=== PATIENT | male | born 1965 | race Caucasian/White ===

== ENCOUNTER 2018-10-17 06:00 | Day surgery (SDC) | payer BC ==
[~2018-10-17 06:00] MED LIST: Lactated Ringers 1,000 ML IV SCH
[2018-10-17] MEDS ORDERED: DIPRIVAN 200 MG/20 ML IV ONE (06:01)
[2018-10-17] MEDS ORDERED: Ketamine HCl 50 MG/ML IV ONE (06:01)
[2018-10-17 06:27] VITALS: O2SAT 97
[2018-10-17] MEDS ORDERED: Lactated Ringers 1,000 ML IV ONE (07:10)
[2018-10-17 08:58] VITALS: BP 115/70; PULSE 67
--- NOTE | 2018-10-17 14:16 | OP ---
SURGERY DATE/TIME: 10/17/2018 0705 PREOPERATIVE DIAGNOSIS: Screening colonoscopy. POSTOPERATIVE DIAGNOSIS: Descending colon polyp. PROCEDURE: Colonoscopy. SURGEON: Vazquez Anne M.D. ANESTHESIA: MAC by Walter Motley CRNA. ESTIMATED BLOOD LOSS: Minimal. SPECIMENS: Hot snare polypectomy from descending colon. DESCRIPTION OF PROCEDURE: After informed written consent was obtained, the patient was taken to the endoscopy suite. He underwent monitored anesthesia and digital rectal exam showed normal sphincter tone and no internal lesions. The scope was inserted into the rectum and sequentially the entire colonic mucosa was traversed. The level of cecum was reached and verified with direct visualization of ileocecal valve. Upon withdrawal a sessile polyp in the descending colon was felt to be too large to be grasped with forceps therefore it was encircled with a snare and cauterized at the base. The entire lesion was removed. It was retrieved and sent for pathology. The remainder of the exam was unremarkable. Retroflexion was performed prior to withdrawal showed no internal lesions. The scope was removed and the patient was transferred to the recovery room in good condition. He is advised to follow up in one week for pathology results.
== END 2018-10-17 09:00 | disposition home or self-care (01) ==
LOC: SDC 06:00
PROVIDERS: ATTEND Family Medicine
DX: Z12.11 Encounter for screening for malignant neoplasm of colon (principal); K63.5 Polyp of colon
CPT/HCPCS: 88305; J2704

== ENCOUNTER 2022-08-31 06:04 | Day surgery (SDC) | payer BC ==
[2022-08-31] MEDS ORDERED: Lactated Ringers 1,000 ML IV SCH (07:00)
[2022-08-31] MEDS ORDERED: Versed 2 MG/2 ML Injection ONE (07:45)
[2022-08-31] MEDS ORDERED: DIPRIVAN 200 MG/20 ML IV ONE ×2 (07:45→08:22)
--- NOTE | 2022-08-31 08:47 | OP ---
SURGERY DATE/TIME: 08/31/2022 0756 PREOPERATIVE DIAGNOSES: 1) Screening colonoscopy. 2) History of colon polyps. POSTOPERATIVE DIAGNOSIS: Colon polyps x3. PROCEDURE: Colonoscopy. SURGEON: Vazquez Anne M.D. ANESTHESIA: MAC by Tres Farmer CRNA. ESTIMATED BLOOD LOSS: Minimal. SPECIMENS: Three hot forceps polypectomies. DESCRIPTION OF PROCEDURE: After informed written consent was obtained, the patient was taken to the endoscopy suite. He was placed in the left lateral decubitus position and anesthesia was titrated to desired level of consciousness. Digital rectal exam showed normal sphincter tone and no internal lesions. The scope was inserted into the rectum and sequentially the entire colonic mucosa was traversed. The level of cecum was reached and verified with direct visualization of the ileocecal valve. Upon withdrawal careful mucosal inspection revealed three very small sessile polyps one in the ascending colon, one in the proximal sigmoid and one in the distal sigmoid. There were all grasped with forceps cauterized and removed in their entirety and sent for pathology. There was no bleeding following removal of all three polyps. No complications. Prior to withdrawal retroflexion was performed and showed no internal lesions. The scope was removed. The patient was transferred to the recovery room in good condition. He will follow up in a week for pathology results.
[2022-08-31 09:16] VITALS: BP 115/78; PULSE 64; O2SAT 99
== END 2022-08-31 09:27 | disposition home or self-care (01) ==
LOC: SDC 06:04
PROVIDERS: ATTEND Family Medicine
DX: Z09 Encounter for follow-up examination after completed treatment for conditions other than malignant neoplasm (principal); Z86.010 Personal history of colon polyps; D12.2 Benign neoplasm of ascending colon; D12.4 Benign neoplasm of descending colon
CPT/HCPCS: J2250; J2704

== ENCOUNTER 2023-09-24 10:48 | Day surgery (SDC) | payer BC ==
--- NOTE | 2023-09-24 07:56 | HP ---
DATE OF SURGERY: 09/24/2023 HISTORY OF PRESENT ILLNESS: The patient is a 58-year-old with a bulge and some pain at times mid abdomen. CT scan showed an incarcerated ventral hernia. I recommend repair. PAST MEDICAL HISTORY: No chronic illnesses. PAST SURGICAL HISTORY: Bilateral testicular cyst. Colonoscopy. MEDICATIONS: Multiple vitamins. ALLERGIES: NKDA. FAMILY HISTORY: Hypertension, diabetes. SOCIAL HISTORY: No smoking now. Occasional alcohol abuse. REVIEW OF SYSTEMS: Twelve systems reviewed. No chest pain or palpitations. Other systems negative or noncontributory as above and per preadmission questionnaire. PHYSICAL EXAMINATION: Height 6 feet 4 inches. BMI 27.4. GENERAL: No acute distress. HEENT: Sclerae nonicteric. EOMI. Oral mucous membranes moist. NECK: No JVD. CHEST: Equal excursion, nonlabored breathing. CVS: Regular rate and rhythm. ABDOMEN: Soft. No peritoneal signs. Bulge epigastric mid umbilical area consistent with incarcerated ventral hernia. EXTREMITIES: No significant edema. NEURO: Alert, oriented, moving extremities symmetrically. PSYCH: Appropriate mood and affect. SKIN: Dry. IMPRESSION: Incarcerated ventral hernia. I recommend repair. He was described the risks in detail including but not limited to bleeding or infection, risk of wound infection, hematoma or seroma formation, risk of trocar injury, bowel, bladder, blood vessel injury. Risk of mesh infection possibly requiring removal. Risk of pain, burning, numbness possibly chronic in nature. Risk of scar formation or bowel obstruction. Risk of ileus. Remote risk of mesh fracture or failure possibly creating issues with viscera or other structures, risk of ongoing morbidity/mortality, risk of perioperative ileus, risk of anesthesia, deep venous thrombosis, pulmonary embolism, pneumonia but not limited to. Risk of recurrence but not limited to. He understands and agrees with the planned procedure, will proceed with outpatient laparoscopic-assisted repair of incarcerated ventral hernia with mesh possible open.
[~2023-09-24 10:48] MED LIST changes: +Lactated Ringers 1,000 ML IV ONE; -Lactated Ringers 1,000 ML IV SCH; +Sensorcaine 0.25% 10 ML ONE
[2023-09-24] MEDS: Lactated Ringers 1,000 ML IV SCH (11:06)
[2023-09-24] MEDS: CEFAZOLIN 2 GM-D5W BAG** 2 GM/50 ML ML IV SCH (11:06)
[2023-09-24 11:22] VITALS: RESP 18
[2023-09-24] MEDS ORDERED: TORAdol 30 mg Injection ONE (11:59)
[2023-09-24] MEDS ORDERED: Decadron 4 MG INJ ONE (11:59)
[2023-09-24] MEDS ORDERED: Zofran 4 MG/2 ML VIAL ONE (11:59)
[2023-09-24] MEDS ORDERED: BRIDION 200MG/2ML IV ONE (11:59)
[2023-09-24] MEDS ORDERED: Xylocaine-Mpf 2% 5 Ml Vial ONE (11:59)
[2023-09-24] MEDS ORDERED: ROCURONIUM BROMIDE IV ONE (11:59)
[2023-09-24] MEDS ORDERED: DIPRIVAN 200 MG/20 ML IV ONE (11:59)
[2023-09-24] MEDS ORDERED: Versed 2 MG/2 ML Injection ONE (12:02)
[2023-09-24] MEDS ORDERED: SUBLIMAZE 100 MCG/2 ML ONE ×3 (12:02→15:40)
[2023-09-24] MEDS ORDERED: Sensorcaine 0.25% 10 ML ONE (13:01)
[2023-09-24] MEDS ORDERED: Ephedrine Sulfate 50 MG/ML ONE (13:34)
[2023-09-24] MEDS ORDERED: Marcaine 0.5%/Epinephrine 10 ML ONE (14:05)
[2023-09-24 15:29] LABS: Appearance Clear (Clear); Bacteria None Seen /HPF (None Seen); Bilirubin Negative (Negative); Blood Negative (Negative); Epithelial Cells None Seen /HPF (None Seen); Glucose, Urine Negative (Negative); Hyaline Casts NONE SEEN /LPF (0-2); Ketones Negative (Negative); Leukocyte Esterase Negative (Negative); Nitrite Negative (Negative); Protein,Urine Dip Negative (Negative); RBC 0-2 /HPF (0-5); Specific Gravity 1.015 (1.005-1.030); Urobilinogen 0.2 mg/dL (0.2); WBC 0-2 /HPF (0-5)
--- NOTE | 2023-09-24 15:35 | OP ---
SURGERY DATE/TIME: 09/24/2023 1251 PREOPERATIVE DIAGNOSIS: Incarcerated ventral hernia. POSTOPERATIVE DIAGNOSIS: Incarcerated ventral hernia. PROCEDURE: Laparoscopic-assisted repair of incarcerated ventral hernia with mesh (span was approximately 3.5 to less than 4 cm in size). SURGEON: Dr. Khris Mark. ANESTHESIA: General. ESTIMATED BLOOD LOSS: Minimal. INDICATIONS: As noted above. Risks and benefits explained in detail and not limited to and consent obtained. DESCRIPTION OF PROCEDURE AND FINDINGS: The patient is taken to the operating room. General anesthesia induced. Abdomen prepped and draped in usual sterile fashion. After official time out and no disagreement with planned procedure, a transverse incision made left upper quadrant. Fascia grasped and pulled upwards. Veress needle inserted and tested with saline. Pneumoperitoneum accomplished opening pressure 0 to 15. A 5 mm bladeless port and camera inserted without difficulty. Another 5 mm right upper quadrant mid abdomen port and left lateral mid abdomen port, left lower port and a lateral 5 mm port. There is no evidence of any intra-abdominal injury secondary to trocar insertion. He had incarcerated omentum up in this hernia defect in the mid abdomen. Preperitoneal space carefully entered and carefully dissected deep peritoneal space circumferentially around this. The incarcerated fat and omentum was carefully reduced out of this hernia. This took some time but slowly and carefully accomplished. Once this was done with the aid of LigaSure device there was a little band over towards the right colon that was released. Otherwise, at this point the defect was measured with aid of a spinal needle and is about 3.5 to 4 cm, just under 4 cm. It was felt could place transfascial suture with good overlap in all directions. Size [address] mesh is the most appropriate size mesh to use in this particular individual. A transverse incision made cephalad. It should be noted there were two hernia defects that were repaired en bloc with total span was just under 3.5 to just under 4 cm. After it had been reduced, size [address] mesh is carefully marked on the skin. Four quadrant 0 Ethibond placed. Transverse incision made in cephalad defect. Dissection carried down around the hernia sac with the transfascial #1 Vicryl placed about 1 cm apart around the defect fascial edges, this is temporarily tagged. The port was placed through the defect. The mesh had been wet and then carefully gently rolled and placed to conform to shape. Pressure had been turned to 8. The port had been removed. The transfascial sutures had been closed bringing the fascia back to midline with #1 Vicryl. The mesh is then pulled up and centering with 0 Ethibond then placed in the center of the mesh. Four quadrant 0 Ethibond pulled up and tied transfascially. Once this was accomplished and mesh lying nice and flat in a tension free manner, the pressure had been turned down to 8. It was then tacked about 1 cm apart around the periphery with some CapSure Tacker. A couple additional CapSure Tackers placed more centrally to reduce the risk of any space formation. Good hemostasis noted. No signs of any issues secondary to dissection and/or trocar or Veress needle placement. Pneumoperitoneum was decompressed. Subcu was closed over the hernia defect imbricating it downwards towards the fascia. Skin closed with 4-0 Vicryl. There were a couple of defective sutures that just fell off and was replaced. It took a little additional time. Otherwise, skin closed with 4-0 Vicryl. Steri-Strips and sterile dressing applied. Anesthesia applied tap blocks. The patient tolerated the procedure well. There were no immediate complications.
[2023-09-24 16:15] VITALS: TEMP 97.2
[2023-09-24 16:22] VITALS: BP 115/73; PULSE 70; O2SAT 94
== END 2023-09-24 16:40 | disposition home or self-care (01) ==
LOC: SDC 10:48
PROVIDERS: ATTEND Surgery
DX: K43.6 Other and unspecified ventral hernia with obstruction, without gangrene (principal)
CPT/HCPCS: 64488; 76937; 81001; 87086; J0690; J1100; J1885; J2250; J2405; J2704; J3010; L0625